=== PATIENT | male | born 1960 | race American Indian/Alaskan Native ===

== ENCOUNTER 2017-11-05 04:11 | Emergency (ER) | payer SELFPAY ==
[2017-11-05] MEDS ORDERED: NACL 0.9% 500 ML 500 ML IV ONE (06:45)
[2017-11-05] MEDS ORDERED: SUBLIMAZE IV ONE (06:45)
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
[2017-11-05 07:16] LABS: Basophils % (Auto) 0.3 % (0.0-1.8); Eosinophils % (Auto) 1.1 % (0.0-4.3); Hematocrit 49.3 % (35.5-45.6); Hemoglobin 16.2 gm/dl (11.8-15.2); Mean Corpuscular HGB Conc 33 % (32-34); Mean Corpuscular Hemoglobin 32 pg (28-32); Mean Corpuscular Volume 96 fl (84-94); Platelet Count 183 K/mm3 (140-440); Red Blood Count 5.16 M/mm3 (3.65-5.03); White Blood Count 13.2 K/mm3 (4.5-11.0)
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
[2017-11-05] MEDS ORDERED: NACL ONE (07:20)
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
[2017-11-05 07:29] LABS: INR 0.92 (0.87-1.13); Partial Thromboplastin Time 27.6 Sec. (24.2-36.6)
[2017-11-05 07:40] LABS: Alanine Aminotransferase 26 units/L (7-56); Albumin 4.8 g/dL (3.9-5); Alkaline Phosphatase 62 units/L (35-129); Anion Gap 21 mmol/L; BUN/Creatinine Ratio 16; Blood Urea Nitrogen 11 mg/dL (9-20); Calcium 9.4 mg/dL (8.4-10.2); Carbon Dioxide 22 mmol/L (22-30); Creatine Kinase 1272 units/L (55-170); Glucose 84 mg/dL (75-100); Potassium 4.2 mmol/L (3.6-5.0); Sodium 144 mmol/L (137-145); Total Protein 7.2 g/dL (6.3-8.2)
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
[2017-11-05 11:30] VITALS: BP 160/100
== END 2017-11-05 11:15 | disposition home or self-care (01) ==
LOC: EDBD 04:11 → ED 04:11
DX: R07.89 Other chest pain (principal); F10.129 Alcohol abuse with intoxication, unspecified; Y90.9 Presence of alcohol in blood, level not specified; R51 Headache; M54.2 Cervicalgia; R10.9 Unspecified abdominal pain; V89.2XXA Person injured in unspecified motor-vehicle accident, traffic, initial encounter; Y93.89 Activity, other specified; Y99.8 Other external cause status; Y92.410 Unspecified street and highway as the place of occurrence of the external cause
CPT/HCPCS: 36415; 70450; 71010; 71275; 72070; 72100; 72125; 72170; 74177; 80053; 82550; 84484; 85025; 85610; 85730; 86850; 86900; 86901; 93005; 93010; 96361; 96374; 99285; G0480; J3010; J7040; Q9967; 80320